=== PATIENT | male | born 1980 | race Caucasian/White ===

== ENCOUNTER 2021-12-15 12:46 | Inpatient (IN) | payer OTHER ==
[2021-12-15 13:04] VITALS: BMI 22.8
[2021-12-15] MEDS ORDERED: NICOTINE 10 MG CARTRIDGE (INHALER) IH PRN (15:34)
[2021-12-15] MEDS ORDERED: BISMUTH SUBSALICYLATE 524 MG/30 ML PO PRN (15:34)
[2021-12-15] MEDS ORDERED: BENZOCAINE/MENTHOL (CHLORASEPTIC ) LOZENGE MM PRN (15:34)
[2021-12-15] MEDS ORDERED: IBUPROFEN 600 MG TABLET (FP) PO PRN (15:34)
[2021-12-15] MEDS ORDERED: ONDANSETRON *ODT* 4 MG TABLET SL PRN (15:34)
[2021-12-15] MEDS ORDERED: MAGNESIUM CITRATE 300 ML BOTTLE PO PRN (15:34)
[2021-12-15] MEDS ORDERED: IBUPROFEN 400 MG TABLET (FP) PO PRN (15:34)
[2021-12-15] MEDS ORDERED: MAG HYDROX/AL HYDROX/SIMETH 30 ML UNIT-DOSE CUP PO PRN (15:34)
[2021-12-15] MEDS ORDERED: LOPERAMIDE HCL 2 MG CAPSULE PO PRN (15:34)
[2021-12-15] MEDS ORDERED: MAGNESIUM HYDROX 2400MG/30ML ORAL SUSPENSION 30 ML CUP PO PRN (15:34)
[2021-12-15] MEDS ORDERED: ACETAMINOPHEN 325 MG TABLET (FP) PO PRN ×2 (15:34)
[2021-12-15] MEDS ORDERED: DICYCLOMINE HCL 10 MG CAPSULE PO PRN (15:34)
[2021-12-15] MEDS: hydrOXYzine PAMOATE 25 MG CAPSULE (FP) PO SCH ×2 (18:37→22:26)
[2021-12-15] MEDS: METHOCARBAMOL 500 MG TABLET PO PRN (18:37)
[2021-12-15] MEDS: MELATONIN 5 MG TABLETS PO SCH (22:26)
[2021-12-15] MEDS: THIAMINE HCL 100 MG TABLET (FP) PO SCH (22:27)
[2021-12-16] MEDS: hydrOXYzine PAMOATE 25 MG CAPSULE (FP) PO SCH ×5 (06:45→22:46)
[2021-12-16] MEDS ORDERED: methaDONE HCL 10 MG TABLET PO SCH (08:45)
[2021-12-16] MEDS ORDERED: methaDONE HCL 10 MG TABLET ONE (09:35)
[2021-12-16] MEDS ORDERED: methaDONE HCL 40 MG DISPERSABLE TABLET ONE (09:35)
[2021-12-16] MEDS ORDERED: chlordiazePOXIDE HCL 25 MG CAPSULE PO PRN (09:47)
[2021-12-16] MEDS: PRENATAL VITAMINS W/ FOLIC ACID TABLET (FP) PO SCH (09:53)
[2021-12-16] MEDS: methaDONE 40 MG, methaDONE 10 MG PO SCH (09:53)
[2021-12-16] MEDS: METHOCARBAMOL 500 MG TABLET PO PRN ×2 (09:53→22:48)
[2021-12-16] MEDS: chlordiazePOXIDE HCL 25 MG CAPSULE PO SCH ×3 (10:33→22:46)
[2021-12-16 10:46] LABS: HEMATOCRIT 39.1 % (35.4-49); HEMOGLOBIN 13.2 GM/dL (11.7-16.9); MCH 32.3 pg (25.7-33.7); MCHC 33.7 g/dl (32.0-35.9); MEAN CELL VOLUME 95.6 fl (80-96); MEAN PLT VOLUME 7.6 fl (7.5-11.1); PLATELET COUNT 330 10^3/uL (134-434); RBC 4.09 M/mm3 (4.00-5.60); RDW 13.5 % (11.9-15.9); WHITE BLOOD COUNT 5.6 K/mm3 (4.0-10.0)
[2021-12-16 10:58] LABS: CREATININE 0.8 mg/dL (0.55-1.3)
[2021-12-16 10:59] LABS: BILIRUBIN,TOTAL 0.3 mg/dL (0.2-1); TOT PROT 6.6 g/dl (6.4-8.2)
[2021-12-16] MEDS: THIAMINE HCL 100 MG TABLET (FP) PO SCH (22:46)
[2021-12-16] MEDS: MELATONIN 5 MG TABLETS PO SCH (22:46)
[2021-12-17] MEDS ORDERED: methaDONE HCL 40 MG DISPERSABLE TABLET ONE (05:10)
[2021-12-17] MEDS ORDERED: methaDONE HCL 10 MG TABLET ONE (05:10)
[2021-12-17] MEDS: hydrOXYzine PAMOATE 25 MG CAPSULE (FP) PO SCH ×5 (06:06→22:23)
[2021-12-17] MEDS: chlordiazePOXIDE HCL 10 MG CAPSULE PO SCH ×4 (06:06→22:22)
[2021-12-17] MEDS: methaDONE 40 MG, methaDONE 10 MG PO SCH (06:07)
[2021-12-17] MEDS: PRENATAL VITAMINS W/ FOLIC ACID TABLET (FP) PO SCH (10:53)
[2021-12-17] MEDS ORDERED: chlordiazePOXIDE HCL 10 MG CAPSULE PO PRN (11:00)
[2021-12-17] MEDS: THIAMINE HCL 100 MG TABLET (FP) PO SCH (22:22)
[2021-12-17] MEDS: MELATONIN 5 MG TABLETS PO SCH (22:22)
[2021-12-17] MEDS: METHOCARBAMOL 500 MG TABLET PO PRN (22:23)
[2021-12-18] MEDS ORDERED: methaDONE HCL 10 MG TABLET ONE (04:50)
[2021-12-18] MEDS ORDERED: methaDONE HCL 40 MG DISPERSABLE TABLET ONE (04:51)
[2021-12-18] MEDS ORDERED: chlordiazePOXIDE HCL 10 MG CAPSULE PO ONE (05:00)
[2021-12-18] MEDS: hydrOXYzine PAMOATE 25 MG CAPSULE (FP) PO SCH ×5 (05:24→22:22)
[2021-12-18] MEDS: chlordiazePOXIDE HCL 10 MG CAPSULE PO SCH ×2 (05:24→17:49)
[2021-12-18] MEDS: methaDONE 40 MG, methaDONE 10 MG PO SCH (05:24)
[2021-12-18] MEDS: PRENATAL VITAMINS W/ FOLIC ACID TABLET (FP) PO SCH (10:34)
[2021-12-18] MEDS ORDERED: BICTEGRAV/EMTRICIT/TENOFOV (BIKTARVY) 50-200-25 MG TABLET PO SCH (15:00)
[2021-12-18] MEDS: METHOCARBAMOL 500 MG TABLET PO PRN (22:21)
[2021-12-18] MEDS: MELATONIN 5 MG TABLETS PO SCH (22:22)
[2021-12-18] MEDS: THIAMINE HCL 100 MG TABLET (FP) PO SCH (22:22)
[2021-12-19] MEDS ORDERED: chlordiazePOXIDE HCL 10 MG CAPSULE PO ONE (05:00)
[2021-12-19] MEDS ORDERED: methaDONE HCL 40 MG DISPERSABLE TABLET ONE (05:06)
[2021-12-19] MEDS ORDERED: methaDONE HCL 10 MG TABLET ONE (05:06)
[2021-12-19] MEDS: hydrOXYzine PAMOATE 25 MG CAPSULE (FP) PO SCH (05:35)
[2021-12-19] MEDS: methaDONE 40 MG, methaDONE 10 MG PO SCH (05:36)
[2021-12-19 08:55] VITALS: BP 107/60; PULSE 62; TEMP 97.5
[2021-12-20] MEDS ORDERED: chlordiazePOXIDE HCL 10 MG CAPSULE PO SCH (05:00)
== END 2021-12-19 09:19 | disposition home or self-care (01) | DRG 773 ==
LOC: YASAS 12:46 → Y3N 16:54
PROVIDERS: ADMIT Allergy & Immunology; ATTEND Surgery
PROC: HZ2ZZZZ Detoxification Services for Substance Abuse Treatment (ICD-10-PCS; principal; 2021-12-15)
DX: F10.230 Alcohol dependence with withdrawal, uncomplicated (principal); F11.20 Opioid dependence, uncomplicated; F13.20 Sedative, hypnotic or anxiolytic dependence, uncomplicated; F14.20 Cocaine dependence, uncomplicated; F12.20 Cannabis dependence, uncomplicated; F17.210 Nicotine dependence, cigarettes, uncomplicated; F19.24 Other psychoactive substance dependence with psychoactive substance-induced mood disorder; F41.9 Anxiety disorder, unspecified; Z21 Asymptomatic human immunodeficiency virus [HIV] infection status; B18.2 Chronic viral hepatitis C; E88.09 Other disorders of plasma-protein metabolism, not elsewhere classified
CPT/HCPCS: 36415; 71046-TC-FY; 80053; 85027; 86780; 93005; 93010; C9803-CS; U0003; U0005